=== PATIENT | male | born 1990 | race American Indian/Alaskan Native ===

== ENCOUNTER 2017-05-07 14:42 | Emergency (ER) | payer MEDICAID ==
[2017-05-07 14:50] VITALS: BP 132/82; TEMP 98.4
--- NOTE | 2017-05-07 14:59 | C.PDOC ---
History Of Present Illness 27 year old male with complaints of swelling and soreness to top of his gums and teeth. He denies any injury or recent dental procedures, no fever, discharge or bleeding. Time Seen by Provider: 05/07/17 14:53 Chief Complaint (Nursing): Allergic Reaction History Per: Patient History/Exam Limitations: no limitations Onset/Duration Of Symptoms: Hrs Current Symptoms Are (Timing): Still Present Severity: Mild Quality: Positive for: "Pain" Past Medical History Reviewed: Historical Data, Nursing Documentation, Vital Signs Vital Signs: Last Vital Signs Temp 98.4 F 05/07/17 14:47 Pulse 107 H 05/07/17 14:47 Resp 20 05/07/17 14:47 BP 132/82 05/07/17 14:47 Pulse Ox 96 05/07/17 15:02 - Medical History PMH: No Chronic Diseases Surgical History: No Surg Hx Family History: States: Unknown Family Hx - Social History Hx Alcohol Use: Yes Hx Substance Use: Yes - Immunization History Hx Tetanus Toxoid Vaccination: No Hx Influenza Vaccination: No Hx Pneumococcal Vaccination: No Review Of Systems Except As Marked, All Systems Reviewed And Found Negative. ENT: Positive for: Mouth Pain Physical Exam - Physical Exam Appears: Non-toxic, No Acute Distress Skin: Warm, Dry, No Diaphoretic, No Rash Head: Atraumatic, Normacephalic Eye(s): bilateral: Normal Inspection, EOMI Nose: Normal Oral Mucosa: Moist Tongue: Normal Appearing, No Swelling Lips: Normal Appearing, No Swelling Teeth: Normal Dentition (fair), Other (gold caps to 4 teeth upper central incisor and lateral incisors) Gingiva: No Ulceration, No Bleeding, No Abscess, Other (gingival swelling and tenderness surrounding upper central incisor and lateral incisors) Throat: Normal, No Erythema, No Exudate, No Drooling, No Mass Neck: Normal ROM, Supple Chest: Symmetrical Extremity: Bilateral: Atraumatic, Normal Color And Temperature, Normal ROM Neurological/Psych: Oriented x3, Normal Speech Gait: Steady ED Course And Treatment O2 Sat by Pulse Oximetry: 96 (room air) Pulse Ox Interpretation: Normal Medical Decision Making Medical Decision Makin27 year old male with pain to his gums. On exam patient has gingival swelling surrounding top 4 teeth that have gold caps. Will treat with Penicillin and Ibuprofen. Advise patient to follow up with dentist in few days Disposition Counseled Patient/Family Regarding: Diagnosis, Need For Followup, Rx Given - Disposition Disposition: HOME/ ROUTINE Disposition Time: 15:00 Condition: STABLE Additional Instructions: Please follow up with dentist for further evaluation Take antibiotic as prescribed and Motrin for any pain May apply over the counter orajel to area of pain. 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
[2017-05-07 15:18] VITALS: PULSE 95; RESP 18; O2SAT 99
== END 2017-05-07 15:18 | disposition home or self-care (01) ==
LOC: C.ER 14:42
DX: K05.10 Chronic gingivitis, plaque induced (principal)